=== PATIENT | female | born 1960 | race Caucasian/White ===

== ENCOUNTER 2018-10-08 21:16 | Emergency (ER) | payer OTHER ==
--- NOTE | 2018-10-08 22:24 | EDM.PDOC ---
ED HPI GENERAL MEDICAL PROBLEM - General Chief Complaint: Bite:Animal, Insect Stated Complaint: FEVER, TICK BITE Time Seen by Provider: 10/08/18 21:42 Source of Information: Reports: Patient History Limitations: Reports: No Limitations - History of Present Illness INITIAL COMMENTS - FREE TEXT/NARRATIVE: This lady comes in complaining of fever and body aches and thinks she may have been bitten by a tick. She was brushing her hair and felt something fall out of her scalp she thinks it may have been a tick that she sort of progressed off of her scalp. She feels a little bump on the the scalp right in the midline and she thinks it might be a tick bite. She's felt febrile at home with generalized body aches. There's been no nausea vomiting diarrhea she has no problems such as a sore throat or stiff neck and there is no cough or any kind of chest pain. She denies any kind of dysuria. She denies any kind of rashes body aches Pain Score (Numeric/FACES): 4 Past Medical History HEENT History: Reports: Impaired Vision [employer] History: Reports: - Infectious Disease History Infectious Disease History: Reports: Chicken Pox, Shingles - Past Surgical History GI Surgical History: Reports: Cholecystectomy Female Surgical History: Reports: Breast Implant Social & Family History - Tobacco Use Smoking Status *Q: Never Smoker - Caffeine Use Caffeine Use: Reports: Coffee - Recreational Drug Use Recreational Drug Use: No ED ROS GENERAL - Review of Systems Review Of Systems: See Below Constitutional: Reports: Fever, Chills HEENT: Reports: No Symptoms Respiratory: Reports: No Symptoms Cardiovascular: Reports: No Symptoms Endocrine: Reports: No Symptoms GI/Abdominal: Reports: No Symptoms Musculoskeletal: Reports: Other (Body aches) Skin: Reports: Other (Possible tick bite to the scalp) Neurological: Reports: No Symptoms Psychiatric: Reports: No Symptoms Hematologic/Lymphatic: Reports: No Symptoms ED EXAM, ANIMAL BITE - Physical Exam Exam: See Below Exam Limited By: No Limitations General Appearance: Alert, WD/WN, No Apparent Distress Eye Exam: Bilateral Eye: Normal Inspection Nose: Normal Inspection Throat/Mouth: Normal Oropharynx Head: Other (She notes a little tiny bump in the midline of the posterior scalp however I don't notice any Erythema there and there may be a tiny bump that's palpable but it's really not visible.) Neck: Normal Inspection, Supple Respiratory/Chest: No Respiratory Distress, Lungs Clear Cardiovascular: Normal Peripheral Pulses, Regular Rate, Rhythm, No Murmur GI/Abdominal: Non-Tender Back Exam: Normal Inspection Extremities: Normal Inspection Neurological: Alert, Oriented, CN II-XII Intact, No Motor/Sensory Deficits Course - Vital Signs Last Recorded V/S: Last Vital Signs Temp 37.9 C 10/08/18 21:34 Pulse 73 10/08/18 21:34 Resp 16 10/08/18 21:34 BP 141/89 H 10/08/18 21:34 Pulse Ox 99 10/08/18 21:34 - Re-Assessments/Exams Free Text/Narrative Re-Assessment/Exam: 10/08/18 22:21 This patient is really worried about some kind of a tick borne illness. She wants to go ahead and be treated for this and I think that that is reasonable considering the incidence of tickborne illnesses in this area so will put her on 2 weeks of doxycycline. I had planned to do some blood work including a tick panel but because of insurance reasons she doesn't want me to do that. She's aware that we have not ruled out anything like pneumonia and that this could also just be a viral infection that she doesn't want us to do any kind of testing. She agrees that if she's not better in a couple of days she will see her Dr. Departure - Departure Time of Disposition: 22:22 Disposition: Home, Self-Care 01 Condition: Fair Clinical Impression: Fever and chills, Tick bite - Discharge Information Referrals: PCP,None [Primary Care Provider] - Additional Instructions: Take doxycycline 100 mg twice daily for 14 days. This is the treatment for Lyme disease. If you are not feeling better in 2 or 3 days then follow-up with your
== END 2018-10-08 22:35 | disposition home or self-care (01) ==
LOC: JP.ED 21:16
DX: S00.06XA Insect bite (nonvenomous) of scalp, initial encounter (principal); Z90.49 Acquired absence of other specified parts of digestive tract; W57.XXXA Bitten or stung by nonvenomous insect and other nonvenomous arthropods, initial encounter
CPT/HCPCS: 99282